=== PATIENT | male | born 1935 | race Caucasian/White ===

== ENCOUNTER 2022-11-25 21:40 | Inpatient (IN) | payer OTHER ==
[~2022-11-25] VITALS: Ht 185.4 cm; Wt 110.2 kg
[2022-11-25] MEDS ORDERED: HALOPERIDOL LACTATE 5 MG/ML VIAL IM ONE (22:30)
[2022-11-25] MEDS ORDERED: LORazepam 2 MG/ML VIAL IM ONE (22:30)
[2022-11-25 22:39] VITALS: BP_SYST 131
[2022-11-25] MEDS ORDERED: NACL 0.9% 1,000 ML IV ONE (23:00)
[2022-11-25] MEDS ORDERED: DIPHENHYDRAMINE INJ 50 MG/ML VIAL IM ONE (23:00)
[2022-11-25 23:27] LABS: BASOPHILS % (AUTO) 0.1 % (0.0-2.0); EOSINOPHILS % (AUTO) 0.2 % (0.0-4.0); HEMATOCRIT 40.4 % (36-54); HEMOGLOBIN 13.9 g/dL (14.0-18.0); LYMPHOCYTES # (AUTO) 0.8 K/uL (1.0-5.5); LYMPHOCYTES % (AUTO) 8.8 % (20.5-51.5); MEAN CORPUSCULAR HEMOGLOBIN 34 pg (27-31); MEAN CORPUSCULAR HGB CONC 34 % (32-36); MEAN CORPUSCULAR VOLUME 99 fL (79.0-98.0); MONOCYTES # (AUTO) 0.4 K/uL (0.0-1.0); MONOCYTES % (AUTO) 4.8 % (1.7-9.3); NEUTROPHILS # (AUTO) 7.7 K/uL (1.8-7.7); NEUTROPHILS % (AUTO) 86.1 % (40.0-70.0); PLATELET COUNT (AUTO) 189 K/uL (130-430); RED BLOOD CELL COUNT(AUTO) 4.07 MIL/uL (4.2-6.2); RED CELL DISTRIBUTION WIDTH 13.8 % (9.0-15.0)
[2022-11-25 23:43] LABS: ALANINE AMINOTRANSFERASE 24 U/L (12-78); ALBUMIN 3.9 g/dL (3.4-4.8); ANION GAP 11 (5-15); ASPARTATE AMINOTRANSFERASE 24 U/L (10-37); CALCIUM 8.7 mg/dL (8.4-11.0); CHLORIDE 101 mmol/L (98-107); CREATININE 1.01 mg/dL (0.55-1.30); FREE T4 (FREE THYROXINE) 1.2 ng/dl (0.8-1.5); GLUCOSE 126 mg/dL (70-99); THYROID STIMULATING HORMONE 2.01 uIu/mL (0.36-3.74); TOTAL BILIRUBIN 0.6 mg/dL (0.0-1.0); UREA NITROGEN, BLOOD 21 mg/dL (8-21)
[2022-11-25 23:45] LABS: ALCOHOL, BLOOD < 3 mg/dL (<10)
[2022-11-26 00:30] LABS: BILIRUBIN,URINE NEGATIVE (NEGATIVE); BLOOD, URINE 1+ (NEGATIVE); CLARITY/URINE HAZY (CLEAR); COLOR,URINE YELLOW (YELLOW); GLUCOSE,URINE NEGATIVE (NEGATIVE); KETONES,URINE 1+ (NEGATIVE); LEUKOCYTE ESTERASE ,URINE NEGATIVE (NEGATIVE); NITRITE, URINE NEGATIVE (NEGATIVE); PROTEIN URINE NEGATIVE (NEGATIVE); UROBILINOGEN,URINE 0.2 (0.2-1.0)
[2022-11-26 00:36] LABS: BARBITURATE, URINE NEGATIVE (NEG <=200); BENZODIAZEPINE, URINE NEGATIVE (NEG <=150); CANNABINOID, URINE NEGATIVE (NEG <=50); COCAINE, URINE NEGATIVE (NEG <=150); METHAMPHETAMINES SCREEN,URINE NEGATIVE (NEG <=500); OPIATE, URINE NEGATIVE (NEG <=100); PHENCYCLIDINE SCREEN,URINE NEGATIVE (NEG <=25); UR TRICYCLIC ANTIDEPRESSANTS NEGATIVE (NEG <=300); URINE AMPHETAMINE NEGATIVE (NEG <=500); URINE METHADONE NEGATIVE (NEG <=200); URINE OXYCODONE SCREEN NEGATIVE (NEG <=100); URINE PROPOXYPHENE SCREEN NEGATIVE (NEG <=300)
[2022-11-26 00:43] LABS: WBC,URINE 0-3 /HPF (0-3)
[2022-11-26 00:44] LABS: BACTERIA,URINE None Seen /HPF (None Seen)
[2022-11-26] MEDS ORDERED: LORazepam 2 MG/ML VIAL IVP ONE ×3 (01:15→14:00)
[2022-11-26] MEDS ORDERED: cefTRIAXone 1 GM in D5W 50 ML IV ONE (01:30)
[2022-11-26] MEDS ORDERED: cefTRIAXone 1 GM VIAL ONE (01:38)
[2022-11-26] MEDS ORDERED: SERT-131 PO (05:07)
[2022-11-26] MEDS ORDERED: ROSU20TA2 PO (05:07)
[2022-11-26] MEDS ORDERED: ASPI-1155 PO (05:07)
[2022-11-26] MEDS ORDERED: MECO10005 (05:07)
[2022-11-26] MEDS ORDERED: MELA10TA2 PO (05:07)
[2022-11-26] MEDS ORDERED: VITD2000 PO (05:07)
[2022-11-26] MEDS: D5/0.45 NS 1,000 ML IV SCH (05:34)
[2022-11-26 06:43] VITALS: BP_SYST 105
[2022-11-26 12:14] VITALS: BP_SYST 138
[2022-11-26] MEDS: AZITHROMYCIN 500 MG in NS 250 ML IV SCH (16:33)
[2022-11-26 17:24] VITALS: BP_SYST 145
[2022-11-26] MEDS ORDERED: HALOPERIDOL LACTATE 5 MG/ML VIAL IM ONE ×2 (17:30→17:45)
[2022-11-26 20:30] VITALS: BP_SYST 137
[2022-11-26] MEDS: LACTULOSE 20 GM/30 ML UDC RC SCH (21:00)
[2022-11-26] MEDS ORDERED: cefTRIAXone 1 GM in D5W 50 ML IV SCH (21:00)
[2022-11-27 00:57] VITALS: BP_SYST 123
[2022-11-27] MEDS: D5/0.45 NS 1,000 ML IV SCH (04:12)
[2022-11-27] MEDS ORDERED: IPRATROPIUM/ALBUTEROL SULFATE 3 ML AMPUL.NEB (DUONEB) INH PRN (05:45)
[2022-11-27] MEDS: PIPERACILLIN/TAZO 3.375/DEX-IS 50 ML IV SCH ×3 (06:00→19:00)
[2022-11-27 06:42] VITALS: BP_SYST 123
[2022-11-27 07:40] LABS: BASOPHILS % (AUTO) 0.1 % (0.0-2.0); EOSINOPHILS # (AUTO) 0.1 K/uL (0.0-0.4); EOSINOPHILS % (AUTO) 0.7 % (0.0-4.0); HEMATOCRIT 38.3 % (36-54); HEMOGLOBIN 13.6 g/dL (14.0-18.0); LYMPHOCYTES # (AUTO) 0.9 K/uL (1.0-5.5); LYMPHOCYTES % (AUTO) 9.9 % (20.5-51.5); MEAN CORPUSCULAR HEMOGLOBIN 35 pg (27-31); MEAN CORPUSCULAR HGB CONC 36 % (32-36); MEAN CORPUSCULAR VOLUME 99 fL (79.0-98.0); MONOCYTES # (AUTO) 0.6 K/uL (0.0-1.0); MONOCYTES % (AUTO) 7.2 % (1.7-9.3); NEUTROPHILS # (AUTO) 7.3 K/uL (1.8-7.7); NEUTROPHILS % (AUTO) 82.1 % (40.0-70.0); PLATELET COUNT (AUTO) 172 K/uL (130-430); RED BLOOD CELL COUNT(AUTO) 3.88 MIL/uL (4.2-6.2); RED CELL DISTRIBUTION WIDTH 13.6 % (9.0-15.0); WHITE BLOOD COUNT (AUTO) 8.9 K/uL (4.8-10.8)
[2022-11-27 08:08] LABS: ALANINE AMINOTRANSFERASE 34 U/L (12-78); ALBUMIN 3.4 g/dL (3.4-4.8); ANION GAP 9 (5-15); ASPARTATE AMINOTRANSFERASE 70 U/L (10-37); CALCIUM 8.3 mg/dL (8.4-11.0); CHLORIDE 101 mmol/L (98-107); CREATININE 0.96 mg/dL (0.55-1.30); GLUCOSE 98 mg/dL (70-99); THYROID STIMULATING HORMONE 3.18 uIu/mL (0.34-4.82); UREA NITROGEN, BLOOD 21 mg/dL (8-21)
[2022-11-27] MEDS: LACTULOSE 20 GM/30 ML UDC RC SCH ×2 (09:00→15:00)
[2022-11-27 11:55] VITALS: BP_SYST 127
[2022-11-27] MEDS ORDERED: GADOTERATE MEGLUMINE 7.5 MMOL/15 ML VIAL IV ONE (14:39)
[2022-11-27] MEDS ORDERED: AMMONIA 1 EA TOWELETTE INH ONE (14:39)
[2022-11-27] MEDS: AZITHROMYCIN 500 MG in NS 250 ML IV SCH (16:51)
[2022-11-27 16:53] VITALS: BP_SYST 119
[2022-11-27 20:00] VITALS: BP_SYST 119
[2022-11-27] MEDS: LACTULOSE 20 GM/30 ML UDC PO SCH (21:09)
[2022-11-28 01:52] VITALS: BP_SYST 130
[2022-11-28] MEDS: PIPERACILLIN/TAZO 3.375/DEX-IS 50 ML IV SCH ×2 (01:53→07:28)
[2022-11-28 09:16] VITALS: BP_SYST 112
[2022-11-28] MEDS: D5/0.45 NS 1,000 ML IV SCH (10:22)
[2022-11-28] MEDS: LACTULOSE 20 GM/30 ML UDC PO SCH ×3 (10:23→20:44)
[2022-11-28 12:00] VITALS: BP_SYST 119
[2022-11-28] MEDS ORDERED: VANCOMYCIN HCL 1,250 MG in NS 250 ML IV ONE (12:00)
[2022-11-28] MEDS: cefTRIAXone 1 GM in D5W 50 ML IV SCH (13:52)
[2022-11-28 16:35] VITALS: BP_SYST 115
[2022-11-28 20:00] VITALS: BP_SYST 122
[2022-11-28] MEDS: VANCOMYCIN HCL 1,250 MG in NS 250 ML IV SCH (20:44)
[2022-11-29 01:30] VITALS: BP_SYST 139
[2022-11-29] MEDS: D5/0.45 NS 1,000 ML IV SCH (05:00)
[2022-11-29 07:46] LABS: BASOPHILS % (AUTO) 0.3 % (0.0-2.0); EOSINOPHILS # (AUTO) 0.3 K/uL (0.0-0.4); EOSINOPHILS % (AUTO) 3.2 % (0.0-4.0); HEMATOCRIT 39.3 % (36-54); HEMOGLOBIN 13.5 g/dL (14.0-18.0); LYMPHOCYTES % (AUTO) 12.1 % (20.5-51.5); MEAN CORPUSCULAR HEMOGLOBIN 34 pg (27-31); MEAN CORPUSCULAR HGB CONC 34 % (32-36); MEAN CORPUSCULAR VOLUME 100 fL (79.0-98.0); MONOCYTES # (AUTO) 0.7 K/uL (0.0-1.0); MONOCYTES % (AUTO) 9.2 % (1.7-9.3); NEUTROPHILS % (AUTO) 75.2 % (40.0-70.0); PLATELET COUNT (AUTO) 181 K/uL (130-430); RED BLOOD CELL COUNT(AUTO) 3.94 MIL/uL (4.2-6.2); RED CELL DISTRIBUTION WIDTH 14.1 % (9.0-15.0)
[2022-11-29 08:00] VITALS: BP_SYST 124
[2022-11-29 08:09] LABS: ALANINE AMINOTRANSFERASE 35 U/L (12-78); ALBUMIN 3.1 g/dL (3.4-4.8); ANION GAP 9 (5-15); ASPARTATE AMINOTRANSFERASE 46 U/L (10-37); CALCIUM 8.5 mg/dL (8.4-11.0); CHLORIDE 103 mmol/L (98-107); CREATININE 0.94 mg/dL (0.55-1.30); GLUCOSE 110 mg/dL (70-99); TOTAL BILIRUBIN 0.7 mg/dL (0.0-1.0); UREA NITROGEN, BLOOD 23 mg/dL (8-21)
[2022-11-29] MEDS: LACTULOSE 20 GM/30 ML UDC PO SCH ×3 (08:46→21:44)
[2022-11-29] MEDS: VANCOMYCIN HCL 1,250 MG in NS 250 ML IV SCH (08:47)
[2022-11-29 11:45] VITALS: BP_SYST 125
[2022-11-29] MEDS: cefTRIAXone 1 GM in D5W 50 ML IV SCH (15:28)
[2022-11-29 15:52] VITALS: BP_SYST 118
[2022-11-29] MEDS ORDERED: ROSUVASTATIN CALCIUM 5 MG/TAB (CRESTOR) PO SCH (16:45)
[2022-11-29] MEDS ORDERED: ATORVASTATIN 20 MG TABLET PO ONE (18:00)
[2022-11-29] MEDS ORDERED: ASPIRIN 81 MG TAB.CHEW PO ONE (18:00)
[2022-11-29] MEDS ORDERED: SERTRALINE HCL 50 MG TABLET PO ONE (18:00)
[2022-11-29] MEDS ORDERED: CHOLECALCIFEROL (VITAMIN D3) 2,000 UNIT TABLET PO ONE (18:00)
[2022-11-29 23:38] VITALS: BP_SYST 112
[2022-11-30 02:06] VITALS: BP_SYST 120
[2022-11-30] MEDS: D5/0.45 NS 1,000 ML IV SCH (02:10)
[2022-11-30 05:40] LABS: ALANINE AMINOTRANSFERASE 48 U/L (12-78); ALBUMIN 3.5 g/dL (3.4-4.8); ANION GAP 9 (5-15); ASPARTATE AMINOTRANSFERASE 50 U/L (10-37); CALCIUM 8.7 mg/dL (8.4-11.0); CHLORIDE 102 mmol/L (98-107); CREATININE 1.04 mg/dL (0.55-1.30); GLUCOSE 127 mg/dL (70-99); TOTAL BILIRUBIN 0.6 mg/dL (0.0-1.0); UREA NITROGEN, BLOOD 21 mg/dL (8-21)
[2022-11-30 08:33] VITALS: BP_SYST 134
[2022-11-30] MEDS: ASPIRIN 81 MG TAB.CHEW PO SCH (09:39)
[2022-11-30] MEDS: ATORVASTATIN 20 MG TABLET PO SCH (09:39)
[2022-11-30] MEDS: SERTRALINE HCL 50 MG TABLET PO SCH (09:39)
[2022-11-30] MEDS: LACTULOSE 20 GM/30 ML UDC PO SCH ×3 (09:40→21:14)
[2022-11-30] MEDS: CHOLECALCIFEROL (VITAMIN D3) 2,000 UNIT TABLET PO SCH (09:40)
[2022-11-30 09:59] VITALS: BP_SYST 134
[2022-11-30 12:00] VITALS: BP_SYST 130
[2022-11-30] MEDS: HALOPERIDOL LACTATE 5 MG/ML VIAL IM PRN (12:48)
[2022-11-30] MEDS: cefTRIAXone 1 GM in D5W 50 ML IV SCH (13:03)
[2022-11-30] MEDS ORDERED: METOPROLOL SUCCINATE 25 MG TAB.SR.24H (TOPROL XL) PO ONE (14:00)
[2022-11-30 16:06] VITALS: BP_SYST 163
[2022-11-30 20:00] VITALS: BP_SYST 146
[2022-11-30] MEDS ORDERED: OLANZapine IntraMuscular 10 MG VIAL (FOR I.M. INJECTION ONLY) IM ONE (21:45)
[2022-11-30] MEDS ORDERED: LORazepam 2 MG/ML VIAL IM ONE (23:59)
[2022-12-01 00:31] VITALS: BP_SYST 144
[2022-12-01] MEDS: D5/0.45 NS 1,000 ML IV SCH (05:00)
[2022-12-01 07:46] VITALS: BP_SYST 164
[2022-12-01 08:32] LABS: ANION GAP 6 (5-15); BASOPHILS % (AUTO) 0.4 % (0.0-2.0); C-REACTIVE PROTEIN QUANT 1.3 mg/dL (0-0.5); CALCIUM 8.6 mg/dL (8.4-11.0); CHLORIDE 100 mmol/L (98-107); EOSINOPHILS # (AUTO) 0.2 K/uL (0.0-0.4); EOSINOPHILS % (AUTO) 2.1 % (0.0-4.0); GLUCOSE 108 mg/dL (70-99); HEMATOCRIT 38.7 % (36-54); HEMOGLOBIN 13.7 g/dL (14.0-18.0); MEAN CORPUSCULAR HEMOGLOBIN 35 pg (27-31); MEAN CORPUSCULAR HGB CONC 35 % (32-36); MEAN CORPUSCULAR VOLUME 99 fL (79.0-98.0); MONOCYTES # (AUTO) 0.9 K/uL (0.0-1.0); MONOCYTES % (AUTO) 10.1 % (1.7-9.3); NEUTROPHILS # (AUTO) 7.2 K/uL (1.8-7.7); NEUTROPHILS % (AUTO) 76.4 % (40.0-70.0); PLATELET COUNT (AUTO) 195 K/uL (130-430); RED CELL DISTRIBUTION WIDTH 13.9 % (9.0-15.0); UREA NITROGEN, BLOOD 21 mg/dL (8-21); WHITE BLOOD COUNT (AUTO) 9.4 K/uL (4.8-10.8)
[2022-12-01 08:55] LABS: ERYTHROCYTE SEDIMENTATION RATE 27 MM/HR (0-15)
[2022-12-01] MEDS ORDERED: METOPROLOL SUCCINATE 25 MG TAB.SR.24H (TOPROL XL) PO SCH (09:00)
[2022-12-01] MEDS ORDERED: METOPROLOL SUCCINATE 25 MG TAB.SR.24H (TOPROL XL) PO ONE (09:15)
[2022-12-01] MEDS: LACTULOSE 20 GM/30 ML UDC PO SCH ×3 (09:23→21:00)
[2022-12-01] MEDS: CHOLECALCIFEROL (VITAMIN D3) 2,000 UNIT TABLET PO SCH (09:23)
[2022-12-01] MEDS: ASPIRIN 81 MG TAB.CHEW PO SCH (09:23)
[2022-12-01] MEDS: ATORVASTATIN 20 MG TABLET PO SCH (09:23)
[2022-12-01] MEDS: SERTRALINE HCL 50 MG TABLET PO SCH (09:23)
[2022-12-01 11:45] VITALS: BP_SYST 136
[2022-12-01] MEDS: cefTRIAXone 1 GM in D5W 50 ML IV SCH (12:51)
[2022-12-01 14:19] VITALS: BP_SYST 154
[2022-12-01 17:28] VITALS: BP_SYST 156
[2022-12-01 19:35] VITALS: BP_SYST 130
[2022-12-02 00:40] VITALS: BP_SYST 124
[2022-12-02] MEDS: D5/0.45 NS 1,000 ML IV SCH (05:00)
[2022-12-02 05:07] LABS: BASOPHILS % (AUTO) 0.5 % (0.0-2.0); EOSINOPHILS # (AUTO) 0.3 K/uL (0.0-0.4); HEMATOCRIT 38.1 % (36-54); LYMPHOCYTES # (AUTO) 1.1 K/uL (1.0-5.5); LYMPHOCYTES % (AUTO) 11.1 % (20.5-51.5); MEAN CORPUSCULAR HEMOGLOBIN 34 pg (27-31); MEAN CORPUSCULAR HGB CONC 34 % (32-36); MEAN CORPUSCULAR VOLUME 100 fL (79.0-98.0); MONOCYTES % (AUTO) 9.9 % (1.7-9.3); NEUTROPHILS # (AUTO) 7.3 K/uL (1.8-7.7); NEUTROPHILS % (AUTO) 75.5 % (40.0-70.0); PLATELET COUNT (AUTO) 198 K/uL (130-430); RED BLOOD CELL COUNT(AUTO) 3.81 MIL/uL (4.2-6.2); WHITE BLOOD COUNT (AUTO) 9.7 K/uL (4.8-10.8)
[2022-12-02 05:24] LABS: ANION GAP 7 (5-15); C-REACTIVE PROTEIN QUANT 1.9 mg/dL (0-0.5); CALCIUM 8.4 mg/dL (8.4-11.0); CHLORIDE 100 mmol/L (98-107); CREATININE 0.98 mg/dL (0.55-1.30); GLUCOSE 122 mg/dL (70-99); UREA NITROGEN, BLOOD 27 mg/dL (8-21)
[2022-12-02 06:38] LABS: ERYTHROCYTE SEDIMENTATION RATE 27 MM/HR (0-15)
[2022-12-02 08:00] VITALS: BP_SYST 136
[2022-12-02] MEDS: LACTULOSE 20 GM/30 ML UDC PO SCH ×3 (09:14→21:39)
[2022-12-02] MEDS: SERTRALINE HCL 50 MG TABLET PO SCH (09:15)
[2022-12-02] MEDS: ASPIRIN 81 MG TAB.CHEW PO SCH (09:15)
[2022-12-02] MEDS: ATORVASTATIN 20 MG TABLET PO SCH (09:15)
[2022-12-02] MEDS: METOPROLOL SUCCINATE 25 MG TAB.SR.24H (TOPROL XL) PO SCH (09:16)
[2022-12-02] MEDS: CHOLECALCIFEROL (VITAMIN D3) 2,000 UNIT TABLET PO SCH (09:16)
[2022-12-02 12:00] VITALS: BP_SYST 128
[2022-12-02] MEDS: cefTRIAXone 1 GM in D5W 50 ML IV SCH (13:37)
[2022-12-02 16:47] VITALS: BP_SYST 132
[2022-12-02 20:00] VITALS: BP_SYST 113
[2022-12-02] MEDS: HALOPERIDOL LACTATE 5 MG/ML VIAL IM PRN (20:42)
[2022-12-02] MEDS ORDERED: LORazepam 2 MG/ML VIAL ONE (21:36)
[2022-12-02] MEDS: LORazepam 2 MG/ML VIAL IM PRN (21:48)
[2022-12-03 01:02] VITALS: BP_SYST 142
[2022-12-03] MEDS: LORazepam 2 MG/ML VIAL IM PRN (03:51)
[2022-12-03 05:12] LABS: BASOPHILS % (AUTO) 0.4 % (0.0-2.0); EOSINOPHILS # (AUTO) 0.2 K/uL (0.0-0.4); EOSINOPHILS % (AUTO) 1.9 % (0.0-4.0); HEMATOCRIT 39.1 % (36-54); HEMOGLOBIN 13.2 g/dL (14.0-18.0); LYMPHOCYTES % (AUTO) 10.2 % (20.5-51.5); MEAN CORPUSCULAR HEMOGLOBIN 34 pg (27-31); MEAN CORPUSCULAR HGB CONC 34 % (32-36); MEAN CORPUSCULAR VOLUME 100 fL (79.0-98.0); MONOCYTES # (AUTO) 0.9 K/uL (0.0-1.0); MONOCYTES % (AUTO) 9.1 % (1.7-9.3); NEUTROPHILS # (AUTO) 7.7 K/uL (1.8-7.7); NEUTROPHILS % (AUTO) 78.4 % (40.0-70.0); PLATELET COUNT (AUTO) 206 K/uL (130-430); RED BLOOD CELL COUNT(AUTO) 3.93 MIL/uL (4.2-6.2); RED CELL DISTRIBUTION WIDTH 13.8 % (9.0-15.0); WHITE BLOOD COUNT (AUTO) 9.8 K/uL (4.8-10.8)
[2022-12-03 05:59] LABS: ALANINE AMINOTRANSFERASE 62 U/L (12-78); ALBUMIN 3.3 g/dL (3.4-4.8); ANION GAP 7 (5-15); ASPARTATE AMINOTRANSFERASE 51 U/L (10-37); C-REACTIVE PROTEIN QUANT 1.7 mg/dL (0-0.5); CALCIUM 8.7 mg/dL (8.4-11.0); CHLORIDE 100 mmol/L (98-107); CREATININE 1.05 mg/dL (0.55-1.30); GLUCOSE 106 mg/dL (70-99); TOTAL BILIRUBIN 0.7 mg/dL (0.0-1.0); UREA NITROGEN, BLOOD 25 mg/dL (8-21)
[2022-12-03 08:00] VITALS: BP_SYST 134
[2022-12-03] MEDS: ATORVASTATIN 20 MG TABLET PO SCH (08:20)
[2022-12-03] MEDS: ASPIRIN 81 MG TAB.CHEW PO SCH (08:20)
[2022-12-03] MEDS: SERTRALINE HCL 50 MG TABLET PO SCH (08:20)
[2022-12-03] MEDS: LACTULOSE 20 GM/30 ML UDC PO SCH ×2 (08:20→14:33)
[2022-12-03] MEDS: CHOLECALCIFEROL (VITAMIN D3) 2,000 UNIT TABLET PO SCH (08:20)
[2022-12-03] MEDS: METOPROLOL SUCCINATE 25 MG TAB.SR.24H (TOPROL XL) PO SCH (08:21)
[2022-12-03 08:42] LABS: ERYTHROCYTE SEDIMENTATION RATE 20 MM/HR (0-15)
[2022-12-03 11:39] VITALS: BP_SYST 119
[2022-12-03] MEDS ORDERED: PIPERACILLIN/TAZO 3.375/DEX-IS 50 ML IV SCH (12:00)
[2022-12-03] MEDS ORDERED: SER25 PO (14:30)
[2022-12-03 15:04] VITALS: BP_SYST 119
[2022-12-03 16:27] VITALS: BP_SYST 121
[2022-12-03] MEDS ORDERED: QUEtiapine FUMARATE 25 MG TABLET PO SCH (21:00)
== END 2022-12-03 22:24 | disposition home health service (06) | DRG 177 ==
LOC: SED 21:40 → SMU 11-26 04:49
PROVIDERS: ADMIT Specialist; ATTEND Specialist
PROC: 4A00X4Z Measurement of Central Nervous Electrical Activity, External Approach (ICD-10-PCS; principal; 2022-12-01)
DX: J69.0 Pneumonitis due to inhalation of food and vomit (principal); G93.41 Metabolic encephalopathy; E72.20 Disorder of urea cycle metabolism, unspecified; N39.0 Urinary tract infection, site not specified; F03.90 Unspecified dementia, unspecified severity, without behavioral disturbance, psychotic disturbance, mood disturbance, and anxiety; G43.909 Migraine, unspecified, not intractable, without status migrainosus; D64.9 Anemia, unspecified; Z20.822 Contact with and (suspected) exposure to COVID-19; E78.5 Hyperlipidemia, unspecified; Z79.82 Long term (current) use of aspirin; Z79.899 Other long term (current) drug therapy; Z88.8 Allergy status to other drugs, medicaments and biological substances
CPT/HCPCS: 36415; 36600; 70450-TC; 70553; 71045; 76376; 80048; 80053; 80202; 80307; 81000; 82140; 82550; 82607; 82803; 83735; 83880; 84439; 84443; 84484; 85025; 85379; 85651-TC; 86140; 87040; 92610-GN; 93005; 93306; 93970; 94760; 95816; 96361; 96365; 96372; 96375; 97110-GP; 97116-GP; 97530-GP; 99291; A9575; G0482; J0456; J0696; J1200; J1630; J2060; J2543; J3370; J3490; J7050; J7060